=== PATIENT | male | born 1965 | race Caucasian/White ===

== ENCOUNTER 2016-11-14 08:00 | Emergency (ER) | payer OTHER ==
[~2016-11-14] VITALS: Ht 180.3 cm; Wt 110.0 kg
[~2016-11-14 08:00] MED LIST: MELO15TA2 PO; PERC5TAB12 PO; PROM25SU8 PO; TAMS0.4C67 PO; ZOLO50TA PO
[2016-11-14 08:02] VITALS: BP 143/92; PULSE 85; RESP 16; TEMP 98.1; O2SAT 99
[2016-11-14] MEDS ORDERED: SIMV10TA PO (08:15)
[2016-11-14] MEDS ORDERED: LOSA50TA PO (08:15)
[2016-11-14] MEDS ORDERED: ZOLO50TA PO (08:15)
[2016-11-14] MEDS ORDERED: MOBI15TA PO (08:15)
--- NOTE | 2016-11-14 08:30 | PD ---
HPI Chief Complaint: Musculoskeletal Complaint Time Seen by Provider: 08:25 Travel History International Travel<30 days: No Contact w/Intl Traveler<30days: No Traveled to known affect area: No History of Present Illness HPI Patient is a 51-year-old male presenting with right knee pain. Present for 5 weeks. He states he was bending down and backing out of a closet when he had a twisting motion and had some pain medially. Sometimes it is posterior. He has been able to walk on the knee but it is painful. Normal range of motion. He states in fact it is relieved when the knee is flexed. He denies any weakness or paresthesias. He saw his PCP who ordered a venous Doppler which was negative for DVT, apparently there was no Redding cyst present. Patient denies a mass behind the knee. He isn't using NSAIDs with total relief. No other attempts at palliation. PFSH Past Medical History Autoimmune Disease: No Blood Disorders: No Anxiety: Yes Depression: Yes Cancer: No Cardiovascular Problems: Yes High Cholesterol: Yes Diabetes: No Diminished Hearing: No Endocrine: No Genitourinary: No Hepatitis: No Hypertension: Yes Immune Disorder: No Musculoskeletal: Yes (PINCH DISC LUMBAR) Neurologic: Yes Psychiatric: Yes Reproductive: No Respiratory: No Migraines: Yes Thyroid Disease: No Past Surgical History Other Surgery: No Social History Alcohol Use: Yes (SOCIALLY) Tobacco Use: No Substance Use: No Allergies-Medications (Allergen,Severity, Reaction): Coded Allergies: No Known Allergies (Verified , 10/09/15) Reported Meds & Prescriptions Reported Meds & Active Scripts Active Medrol Dosepak (Methylprednisolone) 4 Mg Dspk 4 Mg PO DIRECTED Per Pharmacist direction Reported Losartan (Losartan Potassium) 50 Mg Tab 50 Mg PO BID Zoloft (Sertraline HCl) 50 Mg Tab 50 Mg PO DAILY Simvastatin 10 Mg Tab 50 Mg PO DAILY Mobic (Meloxicam) 15 Mg Tab 25 Mg PO DAILY Review of Systems Except as stated in HPI: all other systems reviewed are Neg Physical Exam Narrative GENERAL: Well-developed and well-nourished adult male in no acute distress. SKIN: Warm and dry. Good turgor without tenting. HEAD: Normocephalic and atraumatic. EYES: PERRL bilaterally, 5mm. EOMI bilaterally. No injection or icterus present. No proptosis. Lids without edema or erythema. CARDIOVASCULAR: Regular rate and rhythm without murmurs, rubs, clicks or gallops. Dorsalis pedis and posterior tibial pulses 2+ bilaterally. Capillary refill less than 2 seconds distal tip of all toes of right foot. No pedal edema. Negative bilateral Homans sign. RESPIRATORY: Clear to auscultation bilaterally with symmetrical rise and fall, no distress or use of accessory muscles. MUSCULOSKELETAL: Right knee has mild anterior edema without discoloration or warmth. No patellar or fibular head tenderness. There is some tenderness of palpation of the MCL in the medial tibial plateau the right knee. No laxity of the patella. Negative Neli test. Negative varus and valgus stress test. Distally the patient prone reveals no edema or discoloration or palpable masses in the popliteal fossa. The patient is able to fully range the knee in flexion and extension and palpation of the gastrocnemius and hamstring tendons reveals firmness without any step-offs or tenderness to palpation. Positive Mariam for medial meniscal injury. Patient freely moving all four extremities spontaneously. Extremities without clubbing or cyanosis. No obvious deformities. NEUROLOGIC: CN II-XII grossly intact. Awake and alert. Strength 5/5 bilateral hip flexion, hip extension, knee flexion, knee extension, plantar and dorsiflexion. Sensation intact to the distal tip of all toes of right foot. Normal speech. PSYCHIATRIC: Appropriate mood and affect; insight and judgment normal. Data Data Last Documented VS Vital Signs Date Time Temp Pulse Resp B/P Pulse Ox O2 Delivery O2 Flow Rate FiO2 11/14/16 08:02 98.1 85 16 143/92 99 Orders Knee, Complete (4vws) (11/14/16 08:24) Crutches (11/14/16 09:17) Splint Or Brace Apply/Monitor (11/14/16 09:17) [facility] Medical Decision Making Medical Screen Exam Complete: Yes Emergency Medical Condition: Yes Interpretation(s) Last 24 hours Impressions Knee X-Ray 11/14/16823 Signed Impressions: Service Date/Time: Monday, November 14, 2016 08:51 - CONCLUSION: Small joint effusion from uncertain etiology. No acute osseous abnormality is identified. Cam Alvarado MD Differential Diagnosis Meniscus injury versus ligamentous injury versus knee sprain Narrative Course Patient is a 51-year-old male with a 5 week history of right knee pain after a twisting injury. He saw his PCP who ordered a Doppler which was negative for DVT. There is no Redding cyst noted either. Patient's pain is medial sometimes medial posterior. He is neurovascular intact. He has normal range of motion of the knee. Sling minor anterior edema with some tenderness on the medial and medial tibial plateau aspect. Positive Mariam's sign. This most likely represents a sprain or meniscus injury. Ordered x-ray of the knee which shows a small joint effusion with no evidence of fracture or dislocation. Patient given option for Medrol Dosepak and placed in the immobilizer and given crutches. He has a follow-up appointment with orthopedics this week.See discharge paperwork for further instructions. The plan was discussed with the patient who acknowledged their understanding and agreement. Reinforced the follow-up with primary care is critically important. Patient instructed on emergent conditions that should prompt return to ED. Diagnosis Primary Impression: Knee effusion, right Patient Instructions: General Instructions, Knee Sprain (ED), Meniscus Tear (ED ) Additional Instructions: Take medications as prescribed Apply ice every 1 to 2 hours as needed for pain Avoid maneuvers that aggravate pain Keep knee immobilizer on while being active or using extremity Use crutches when walking to avoid pressure on joint Elevate when at rest Follow-up with PCP or orthopedist in 2-3 days Return to the ED for any acute worsening of symptoms Med/Other Pt SpecificInfo: Prescription(s) given Scripts Methylprednisolone Dosepak (Medrol Dosepak)4 Mg Dspk4 Mg PO DIRECTED #1 DSPK Per Pharmacist direction Prov:Sheila Michael MD 11/14/16 Disposition: 01 DISCHARGE HOME Condition: Stable Cam Ramirez III Nov 14, 2016 08:29
--- NOTE | 2016-11-14 08:55 | RADRPT ---
EXAM DATE/TIME: 11/14/2016 08:51 [facility] COMPARISON: No previous studies available for comparison. INDICATIONS : Right knee pain. Patient states he hyperextended knee three weeks ago and has had pain since. MEDICAL HISTORY : None. SURGICAL HISTORY : None. ENCOUNTER: Initial ACUITY: 3 weeks PAIN SCORE: 8/10 LOCATION: Right medial knee. FINDINGS: 4 views of the right knee demonstrate no fracture or dislocation. Mineralization is within normal anderson its. There is a small joint effusion. A fabella is present. Enthesophyte is present at the superior p ole of the patella. No significant degenerative change is present. No soft tissue abnormality or radi opaque foreign body is identified. CONCLUSION: Small joint effusion from uncertain etiology. No acute osseous abnormality is identified. Cam Alvarado MD on November 14, 2016 at 8:52 Board Certified Radiologist. This report was verified electronically.
[2016-11-14] MEDS ORDERED: MEDR4PAK PO (09:17)
== END 2016-11-14 09:44 | disposition home or self-care (01) ==
LOC: NEPB 08:00
DX: M25.461 Effusion, right knee (principal)
CPT/HCPCS: 73564; 99283; E0113; L1830

== ENCOUNTER → 2017-05-18 | Day surgery (SDC) | payer OTHER ==
[~2017-05-18] MED LIST changes: +BUPIVACAINE/EPINEPHRINE 0.25% PF 30 ML VIAL INFIL ONE; +KETOROLAC TROMETHAMINE 30 MG/ML (IVP) VIAL IV PUSH ONE; +LACTATED RINGER'S 1000 ML INJ 1,000 ML ONE; +LOSA50TA PO; +MEDR4PAK PO; -MELO15TA2 PO; +MIDAZOLAM HCL 2 MG/2 ML VIAL ONE; +MOBI15TA PO; +ONDANSETRON HCL 4 MG/2 ML VIAL IV PUSH ONE; -PERC5TAB12 PO; -PROM25SU8 PO; +PROPOFOL 100 MG/10 ML INJ IV ONE; +SIMV10TA PO; -TAMS0.4C67 PO; +ceFAZolin INJ 1,000 MG VIAL ONE
--- NOTE | 2017-05-19 14:31 | MP ---
cc: EVERARDO GARCIA DATE OF SURGERY 05/18/2017 PREOPERATIVE DIAGNOSIS Right knee medial meniscus tear. POSTOPERATIVE DIAGNOSES Right knee medial meniscus tear. PROCEDURE Right knee arthroscopic partial medial meniscectomy. SURGEON Dr. Everardo Garcia ANESTHESIA General. ESTIMATED BLOOD LOSS Less than 10 cc TOURNIQUET TIME 0 minutes. COMPLICATIONS None. JUSTIFICATION This patient is a 52-year-old male who injured his right knee, has had persistent pain secondary to this condition. He has failed conservative treatment. Clinical exam as well as MRI confirmed the above-named findings. The patient was counseled as to the risks, benefits and alternatives of the above-named proposed surgical procedure. He did wish to proceed with surgery. PROCEDURE IN DETAIL Written consent was obtained. The patient was identified by name, taken to the operating room, placed supine on the operating room table. General anesthesia was administered as well as 1 gram of IV Ancef. The right leg was carefully placed in a well-padded leg martinez, the right lower extremity was prepped and draped using isopropyl alcohol, Hibiclens solution and DuraPrep solution. After time-out was performed, standard medial and lateral parapatellar arthroscopic portals were established. The patellofemoral joint revealed no significant chondromalacia. The medial compartment revealed a large complex tear of the posterior horn and medial meniscus. An arthroscopic biter followed by arthroscopic shaver was introduced into the medial compartment to perform a partial medial meniscectomy. The meniscus was probed and noted to be stable. There was evidence of grade 2 and some early grade 3 chondromalacia changes in the medial femoral condyle. The intercondylar notch revealed chronic disruption of the anterior cruciate ligament. The posterior cruciate ligament was intact. The lateral compartment was free of meniscal pathology and chondromalacia. At the conclusion of the surgical procedure, 30 cc of 0.5% Marcaine with epinephrine was injected into the knee joint. The arthroscopic portals were closed with 3-0 Prolene suture, sterile dressings were applied. The patient tolerated the procedure well, no intraoperative complications noted. Everardo Garcia MD JWM/SSB /3:50 PM /2:10 PM
== END | disposition home or self-care (01) ==
LOC: ESDC 13:41
PROVIDERS: ATTEND Orthopaedic Surgery Sports Medicine
DX: S83.231A Complex tear of medial meniscus, current injury, right knee, initial encounter (principal)
CPT/HCPCS: 01400; 29881; J0690; J1885; J2250; J2405; J3010; J7120